=== PATIENT | male | born 1935 | race Caucasian/White ===

== ENCOUNTER → 2016-07-17 | Outpatient (CLI) | payer MEDICARE, OTHER ==
--- NOTE | ~2016-07-17 | CT71 ---
[facility] RADIOLOGY TEXT RESULTS PATIENT: SUSHMA MAX LOCATION: [facility] : 39 UNIT #: [id number] AGE: [address]: Vadim Trotter MD SEX: M ORDER DR: [id number] [place] [id number] O MR#: [id number] Acc #: [id number] NAME: SUSHMA MAX : 1935 SEX: M STUDY DATE/TIME: 07/17/2016 12:40 UNIT: [facility] ROOM: STUDY DESCRIPTION: CT Head Wo Contrast Attending Physician: Vadim Trotter M.D. Referring Physician: Vadim Trotter M.D. Ordering Physician: Vadim Trotter M.D. Primary Care Physician: Gurmeet Mcknight M.D. MEDICAL IMAGING REPORT This report is preliminary unless electronic signature is present. EXAM Head CT, no contrast. DATE OF STUDY 07/17/2016 PROCEDURE Routine unenhanced head CT. COMPARISON None. CLINICAL HISTORY Episodes of shaking for about 6 months, recently diagnosed with Parkinson's disease. TECHNIQUE NOTE: This CT exam was performed with one or more of the following radiation dose reduction techniques: automatic exposure control, adjustment of mA and/or kV according to patient size, and iterative reconstruction. FINDINGS There is chronic atelectasis of the left maxillary sinus, but the skull base and calvaria are otherwise unremarkable. The extracranial soft tissues are unremarkable. Brain parenchymal density is normal. There is no hemorrhage or mass or hydrocephalus or extraaxial fluid collection. IMPRESSION Essentially normal negative unenhanced head CT. The brain appears normal. [facility] RADIOLOGY TEXT RESULTS PATIENT: SUSHMA MAX LOCATION: [facility] : 39 UNIT #: [id number] AGE: [address]: Vadim Trotter MD SEX: M ORDER DR: There are intracranial atherosclerotic vascular calcifications and there is what appears to be chronic left maxillary sinus atelectasis, but the exam is otherwise unremarkable. Dictated by... Tal Busch M.D. THIS IS AN ELECTRONICALLY VERIFIED REPORT Tal Busch M.D. at 07/18/2016 4:58 PM COREEN/josé miguel TD: 07/17/2016 16:39 JOB #: [id number] MEDICAL IMAGING REPORT Page 1 of 1
== END | disposition home or self-care (01) ==
LOC: SCT 12:23
DX: G20 Parkinson's disease (principal); F09 Unspecified mental disorder due to known physiological condition; I67.2 Cerebral atherosclerosis; J98.11 Atelectasis; J32.0 Chronic maxillary sinusitis
CPT/HCPCS: 70450